=== PATIENT | female | born 1975 | race Asian ===

== ENCOUNTER 2017-03-08 12:44 | Emergency (ER) | payer OTHER ==
[~2017-03-08] VITALS: Ht 154.9 cm; Wt 59.0 kg
[~2017-03-08 12:44] MED LIST: IBUPROFEN400 MG ORAL; KEFLEX500 MG ORAL; NITROFURANTOIN100 M2 ORAL
[2017-03-08 13:09] VITALS: BP 113/80
--- NOTE | 2017-03-08 13:28 | Emergency Room Report ---
History of Present Illness General Chief Complaint: Neck Pain Source: Patient Present Illness HPI 41-year-old female presents to the emergency department complaining of acute onset of left-sided anterior neck swelling since yesterday. Patient states that yesterday evening she was brushing her teeth and she noticed a swollen area in the anterior neck. Patient denies pain patient denies difficulty swallowing. Denies recent upper respiratory infection, sore throat, fevers, nausea, vomiting. She denies history of thyroid disorder, changes in weight, night sweats, anxiousness, or fatigue. Denies cough. Denies rashes, bruising, or recent trauma to the neck area. Denies CP, Palpitations, LOC, AMS, dizziness , Changes in Vision, Sensation, paresthesias, or a sudden severe headache. Allergies: Coded Allergies: NO KNOWN DRUG ALLERGIES (Unverified Allergy, Unknown, 03/25/14) Patient History Past Medical History: see triage record Past Surgical History: none Pertinent Family History: none Last Menstrual Period: 03/01/2017 Now: No : 1 Para: 1 Reviewed Nursing Documentation: PMH: Agreed, PSxH: Agreed Nursing Documentation-PMH Past Medical History: No Stated History Review of Systems All Other Systems: negative except mentioned in HPI Physical Exam Vital Signs Date Time Temp Pulse Resp B/P Pulse Ox O2 Delivery O2 Flow Rate FiO2 03/08/17 13:09 98.2 78 18 113/80 99 Room Air Sp02 EP Interpretation: reviewed, normal General Appearance: no apparent distress, alert, GCS 15, non-toxic Head: normocephalic, atraumatic Eyes: bilateral eye PERRL, bilateral eye normal inspection ENT: hearing grossly normal, normal pharynx, no angioedema, normal voice Neck: full range of motion, supple, no meningismus, no bony tend, other - anterior left sided swelling to the thyroid region, no well circumscribed palpable mass. soft tissue swelling does elevate with swallowing. no erythema Respiratory: chest non-tender, lungs clear, normal breath sounds, speaking full sentences Cardiovascular #1: regular rate, rhythm, no edema Rectal: deferred Musculoskeletal: back normal, gait/station normal, normal range of motion, non- tender Neurologic: alert, oriented x3, responsive, motor strength/tone normal, sensory intact, speech normal Psychiatric: judgement/insight normal, memory normal, mood/affect normal, no suicidal/homicidal ideation Reflexes: 4+ bicep (R), 4+ bicep (L), 4+ tricep (R), 4+ tricep (L), 4+ knee (R) , 4+ knee (L) Skin: normal color, no rash, warm/dry, well hydrated Lymphatic: no adenopathy Medical Decision Making PA Attestation Dr. Ricks is my supervising Physician whom patient management has been discussed with. Diagnostic Impression: Primary Impression: Soft tissue mass Additional Impression: Localized swelling, mass and lump, neck ER Course 41-year-old female presents to the emergency department complaining of acute onset of left-sided anterior neck swelling since yesterday. Patient states that yesterday evening she was brushing her teeth and she noticed a swollen area in the anterior neck. Patient denies pain patient denies difficulty swallowing. Denies recent upper respiratory infection, sore throat, fevers, nausea, vomiting. She denies history of thyroid disorder, changes in weight, night sweats, anxiousness, or fatigue. Denies cough. Denies rashes, bruising, or recent trauma to the neck area. Denies CP, Palpitations, LOC, AMS, dizziness , Changes in Vision, Sensation, paresthesias, or a sudden severe headache. Ddx considered but are not limited to goiter, LAD, abscess, aneurysm, thyroid nodule just to name a few. Vital signs: are WNL, pt. is afebrile H&PE are most consistent with non pulsatile, anterior soft tissue swelling of the neck. no evidence to suggest acute infection or abscess. ORDERS: none required at this time, the diagnosis is clinical ED INTERVENTIONS: None required at this time. discussed this case with attending physician who recommended soft tissue neck which will need to be performed as outpatient. -D/W pt. that US imaging is necessary, and that she will need to coordinate that as an outpatient with her PCP, as we do not have soft tissue neck US here. d/w pt. that her PCP may order thyroid testing, and possible CT imaging in addition to ultrasound imaging. d/w pt. that with her current presentation I do not suspect an acute emergent condition, but it is very early on, and there is always the possibility that one may develop. d/w pt. to keep a close eye for worsening or new symptoms and to Return Promptly to the ED with any changes in her condition/symptoms. currently pt. is stable for close outpatient follow up. and instructed to return to ED with any new developments. D/w pt. that I will also put her on my Call Back list, and will follow up with a phone call in several days to ensure adherence to treatment plan. DISCHARGE: At this time pt. is stable for d/c to home. Will provide printed patient care instructions, and any necessary prescriptions. Care plan and follow up instructions have been discussed with the patient prior to discharge. Last Vital Signs Date Time Temp Pulse Resp B/P Pulse Ox O2 Delivery O2 Flow Rate FiO2 03/08/17 13:09 98.2 78 18 113/80 99 Room Air Disposition: HOME, SELF-CARE Condition: Stable Scripts Ibuprofen* (MOTRIN*) 600 Mg Tablet 600 MG ORAL THREE TIMES A DAY, #21 TAB 0 Refills Prov: Angela Flores 03/08/17 Patient Instructions: Medical Screening Exam Additional Instructions: Take medications as directed. Follow up with a Primary Care Provider in 3-5 days, even if your symptoms have resolved. --Please review list of primary care clinics, if you do not already have a primary care provider SOFT TISSUE NECK ULTRASOUND IMAGING IS RECOMMENDED Return sooner to ED if new symptoms occur, or current symptoms become worse. - Please note that this Emergency Department Report was dictated using [employer] technology software, occasionally this can lead to erroneous entry secondary to interpretation by the dictation equipment. Angela Flores Mar 08, 2017 13:28
[2017-03-08] MEDS ORDERED: IBUPROFEN600 MG ORAL (13:29)
[2017-03-08 13:41] VITALS: BP 113/80
== END 2017-03-08 13:41 | disposition home or self-care (01) ==
LOC: EMR 13:40
DX: R22.1 Localized swelling, mass and lump, neck (principal)
CPT/HCPCS: 99283

== ENCOUNTER 2017-07-05 14:16 | Emergency (ER) | payer OTHER ==
[~2017-07-05] VITALS: Ht 157.5 cm; Wt 59.0 kg
[~2017-07-05 14:16] MED LIST changes: +IBUPROFEN600 MG ORAL
[2017-07-05] MEDS ORDERED: NKM (14:28)
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
[2017-07-05] MEDS ORDERED: ROBAXIN-750750 MG PO (15:16)
[2017-07-05] MEDS ORDERED: IBUPROFEN600 MG ORAL (15:16)
[2017-07-05 17:00] VITALS: BP 124/76
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
== END 2017-07-05 17:00 | disposition home or self-care (01) ==
LOC: EMR 14:40
DX: S16.1XXA Strain of muscle, fascia and tendon at neck level, initial encounter (principal); V49.50XA Passenger injured in collision with unspecified motor vehicles in traffic accident, initial encounter; Y92.410 Unspecified street and highway as the place of occurrence of the external cause
CPT/HCPCS: 72040; 99284